=== PATIENT | female | born 1970 | race African-American/Black ===

== ENCOUNTER 2017-11-17 03:55 | Emergency (ER) | payer MEDICAID ==
[2017-11-17 04:36] VITALS: BP 103/61
[2017-11-17] MEDS ORDERED: DIPH/PERTUSS(ACELL)/TETANUS VAC/PF 0.5 ML SYR (>=10YO) IM ONE (04:44)
--- NOTE | 2017-11-17 04:46 | ER Document Report ---
HPI - HPI Patient complains to provider of: Facial injury Onset: Just prior to arrival Onset/Duration: Sudden Quality of pain: Achy Pain Level: 3 Context: Patient was drinking alcohol this evening and slipped down stairs hitting her face on pavement. Patient denies any loss of consciousness, nausea or vomiting. Behavior has been normal since the injury. Patient has abrasions to the face and nose area. Associated Symptoms: Headache, Other - Facial abrasions Exacerbated by: Denies Relieved by: Denies Similar symptoms previously: No Recently seen / treated by doctor: No - ROS ROS below otherwise negative: Yes Systems Reviewed and Negative: Yes All other systems reviewed and negative - CONSTITUTIONAL Constitutional: DENIES: Fever - NEURO Neurology: DENIES: Headache - GASTROINTESTINAL Gastrointestinal: DENIES: Nausea, Patient vomiting - DERM Skin Color: Normal Notes: Facial abrasions Past Medical History - General Information source: Patient - Social History Smoking Status: Current Every Day Smoker Frequency of alcohol use: Social Drug Abuse: None Family History: Reviewed & Not Pertinent Patient has suicidal ideation: No Patient has homicidal ideation: No - Medical History Medical History: Negative Renal/ Medical History: Denies: Hx Peritoneal Dialysis Past Surgical History: Reports: Hx Section Vertical Provider Document - CONSTITUTIONAL Agree With Documented VS: Yes Exam Limitations: No Limitations General Appearance: WD/WN, No Apparent Distress Notes: Patient removed her cervical collar and does not want it replaced - INFECTION CONTROL TRAVEL OUTSIDE OF THE [place] IN LAST 30 DAYS: No - HEENT HEENT: Normal ENT Exam, Normocephalic, PERRLA Notes: Patient with abrasion to forehead, bridge of nose and right infraorbital area. Extraocular movements intact. Patient with puncture wound to right side of forehead. - NECK Neck: Normal Inspection, Supple. negative: Lymphadenopathy-Left, Lymphadenopathy-Right Notes: No posterior cervical midline tenderness, step-off or deformity - RESPIRATORY Respiratory: Breath Sounds Normal, No Respiratory Distress O2 Sat by Pulse Oximetry: 100 - CARDIOVASCULAR Cardiovascular: Regular Rate, Regular Rhythm, No Murmur - BACK Back: Normal Inspection Notes: No spinal tenderness, step-off or deformity - MUSCULOSKELETAL/EXTREMETIES Musculoskeletal/Extremeties: MAEW, FROM - NEURO Level of Consciousness: Awake, Alert, Appropriate Motor/Sensory: No Motor Deficit - DERM Integumentary: Warm, Dry Notes: Puncture wound to right side of forehead with overlying abrasions to forehead, right infraorbital area and bridge of nose Course - Re-evaluation Re-evalutation: 11/17/17 06:11 Although patient is intoxicated, patient is awake, alert and answers questions appropriately. Patient will not be driving home and will be going home in the care of friends who is sober and is advised of worsening signs or symptoms that she should return immediately for. Patient advised that she will need to follow -up with a ear nose and throat doctor for further evaluation of her nasal fracture. Discussed wound management. 11/17/17 07:46 - Vital Signs Vital signs: Temp Pulse Resp BP Pulse Ox 98.3 F 88 16 103/61 100 11/17/17 04:02 11/17/17 04:02 11/17/17 04:02 11/17/17 04:02 11/17/17 04:02 - Diagnostic Test Radiology reviewed: Reports reviewed Discharge - Discharge Clinical Impression: Alcohol abuse Facial abrasion Qualifiers: Encounter type: initial encounter Qualified Code(s): S00.81XA - Abrasion of other part of head, initial encounter Nasal bone fracture Qualifiers: Encounter type: initial encounter Fracture type: closed Qualified Code(s): S02.2XXA - Fracture of nasal bones, initial encounter for closed fracture Condition: Stable Disposition: HOME, SELF-CARE Instructions: Abrasions of the Face ([facility]), Acute Alcohol Intoxication ([facility]), Fracture of the Nose ([facility]) Additional Instructions: Return immediately for any new or worsening symptoms Followup with your primary care provider, call tomorrow to make a followup appointment Follow-up with an ear nose and throat doctor, call Sunday for an appointment Avoid use of alcohol Keep wounds clean and cover with antibiotic ointment such as bacitracin daily Referrals: ENT [Provider Group] - Follow up as needed [facility] [Provider Group] - 11/19/17
--- NOTE | 2017-11-17 05:27 | RADIOLOGY REPORT (SQ) ---
EXAM DESCRIPTION: CT CERVICAL SPINE WITHOUT CLINICAL HISTORY: fall, facial injury COMPARISON: None available TECHNIQUE: Axial CT of the cervical spine obtained without contrast. FINDINGS: Alignment of the cervical spine is maintained without evidence of subluxation. The atlantoaxial, atlantodental, and occipitoatlantal intervals are preserved. No fracture identified. Vertebral body height preserved. Prevertebral soft tissues are unremarkable. Mild loss of intervertebral disc height and endplate spondylosis at C3/4 through C6/C7 with mild facet arthropathy. Mild osseous neural foraminal narrowing. No central canal narrowing. Visualized skull base is intact. No fracture of the visualized facial bones. Visualized mastoid air cells and paranasal sinuses are well aerated. Visualized thyroid is unremarkable. No cervical lymphadenopathy. No pneumothorax in the visualized lung apices. /Interstitial opacity in the lung apices. DLP: 417.27 mGy-cm IMPRESSION: 1. No acute fracture or subluxation of the cervical spine. 2. Moderate degenerative change of the cervical spine. This exam was performed according to our departmental dose-optimization program, which includes automated exposure control, adjustment of the mA and/or kV according to patient size and/or use of iterative reconstruction technique.
--- NOTE | 2017-11-17 05:29 | RADIOLOGY REPORT (SQ) ---
EXAM DESCRIPTION: CT HEAD WITHOUT CLINICAL HISTORY: fall, facial injury COMPARISON: None available TECHNIQUE: Axial CT of the head obtained from the skull apex to the skull base without contrast. FINDINGS: No acute intracranial hemorrhage identified. No mass, mass effect, shift of the midline, abnormal extra-axial fluid collection or CT evidence of acute ischemic change identified. The ventricular system is unremarkable. No acute abnormalities of the supratentorial white matter, basal ganglia, cerebellum, or brainstem. The visualized paranasal sinuses and the mastoids are clear. No skull fracture identified. Visualized orbits and globes are unremarkable. Contusion/laceration in the right frontal scalp subcutaneous soft tissues. DLP:1162.97 mGy-cm IMPRESSION: 1. No acute intracranial abnormality. This exam was performed according to our departmental dose-optimization program, which includes automated exposure control, adjustment of the mA and/or kV according to patient size and/or use of iterative reconstruction technique.
--- NOTE | 2017-11-17 05:34 | RADIOLOGY REPORT (SQ) ---
EXAM DESCRIPTION: CT FACIAL AREA WITHOUT CLINICAL HISTORY: fall, facial injury COMPARISON: None available TECHNIQUE: Axial CT of the facial bones obtained without contrast. FINDINGS: Visualized orbital floors and izaguirre are intact. Maxillary antral izaguirre and hard palate are intact. Nondisplaced bilateral nasal bone fractures. The pterygoid plates and zygomatic processes are intact. The mandible is intact without mandibular condylar dislocation. Globes and intraconal contents are unremarkable. Contusion in the right frontal paranasal sinuses are well aerated. Visualized mastoid air cells are well aerated. No abnormalities of visualized intracranial contents. No abnormalities of the neck soft tissues. No lymphadenopathy identified. Degenerative change of the cervical spine. Subcutaneous scalp soft tissues. DLP: 278.72 mGy-cm IMPRESSION: 1. Age-indeterminate nondisplaced bilateral nasal bone fractures. 2. No other facial bone fractures identified. Contusion in the right frontal scalp soft tissues. This exam was performed according to our departmental dose-optimization program, which includes automated exposure control, adjustment of the mA and/or kV according to patient size and/or use of iterative reconstruction technique.
== END 2017-11-17 06:34 | disposition home or self-care (01) ==
LOC: ER 03:55
DX: S02.2XXA Fracture of nasal bones, initial encounter for closed fracture (principal); S01.83XA Puncture wound without foreign body of other part of head, initial encounter; W10.9XXA Fall (on) (from) unspecified stairs and steps, initial encounter; F10.129 Alcohol abuse with intoxication, unspecified; F17.200 Nicotine dependence, unspecified, uncomplicated
CPT/HCPCS: 70450; 70486; 72125; 90471; 90715; 99284

== ENCOUNTER 2019-08-13 15:14 | Emergency (ER) | payer MEDICARE, MEDICAID ==
[2019-08-13 15:22] VITALS: BP 115/78
[2019-08-13] MEDS ORDERED: KETOROLAC TROMETHAMINE INJ/PF 30 MG/1 ML SDV IV ONE (15:45)
[2019-08-13] MEDS ORDERED: NORMAL SALINE 1000 ML 1,000 ML IV ONE (15:45)
--- NOTE | 2019-08-13 15:47 | ER Document Report ---
ED Medical Screen (RME) - General Chief Complaint: Back Pain Stated Complaint: BACK PAIN Time Seen by Provider: 08/13/19 15:44 Mode of Arrival: Ambulatory Information source: Patient Notes: Patient presents complaining of right lower back and groin pain for the past 2 to 3 weeks. Patient states pain radiates to the right lower extremity. Patient does have a history of sciatica. Patient denies any fever or urinary symptoms. Patient does have a history of HIV and is not on any antiviral medication at this time. Patient tachycardic in triage. I have greeted and performed a rapid initial assessment of this patient. A comprehensive ED assessment and evaluation of the patient, analysis of test results and completion of the medical decision making process will be conducted by additional ED providers. TRAVEL OUTSIDE OF THE [place] IN LAST 30 DAYS: No - Related Data Allergies/Adverse Reactions: No Known Allergies Allergy (Verified 08/13/19 15:39) Past Medical History - Social History Chew tobacco use (# tins/day): No Frequency of alcohol use: None Drug Abuse: None Renal/ Medical History: Denies: Hx Peritoneal Dialysis Past Surgical History: Reports: Hx Section Physical Exam - Vital signs Vitals: Temp Pulse Resp BP Pulse Ox 98.4 F 124 H 18 115/78 96 08/13/19 15:20 08/13/19 15:20 08/13/19 15:20 08/13/19 15:20 08/13/19 15:20 - General General appearance: Alert Notes: No spinal midline tenderness - Cardiovascular Rhythm: Tachycardia Heart sounds: S1 appreciated, S2 appreciated Course - Vital Signs Vital signs: Temp Pulse Resp BP Pulse Ox 98.4 F 124 H 18 115/78 96 08/13/19 15:20 08/13/19 15:20 08/13/19 15:20 08/13/19 15:20 08/13/19 15:20
[2019-08-13 16:54] LABS: ABSOLUTE LYMPHOCYTES (AUTO) 0.8 10^3/uL (0.5-4.7); ABSOLUTE MONOCYTES (AUTO) 0.4 10^3/uL (0.1-1.4); ABSOLUTE NEUT (AUTO) 2.6 10^3/uL (1.7-8.2); BASOPHILS % (AUTO) 0.6 % (0-2); EOSINOPHILS % (AUTO) 1.2 % (0-6); HEMATOCRIT 42.9 % (36.0-47.0); HEMOGLOBIN 14.6 g/dL (12.0-15.5); LYMPHOCYTES % (AUTO) 20.8 % (13-45); MEAN CORPUSCULAR HEMOGLOBIN 32.8 pg (27.0-33.4); MEAN CORPUSCULAR HGB CONC 34.1 g/dL (32.0-36.0); MEAN CORPUSCULAR VOLUME 96 fl (80-97); MONOCYTES % (AUTO) 11.4 % (3-13); PLATELET COUNT 202 10^3/uL (150-450); RED BLOOD COUNT 4.46 10^6/uL (3.72-5.28); RED CELL DISTRIBUTION WIDTH 13.4 % (11.5-14.0); TOTAL CELLS COUNTED % (AUTO) 100 %; WHITE BLOOD COUNT 3.9 10^3/uL (4.0-10.5)
[2019-08-13 17:01] LABS: ANION GAP 11 (5-19); BLOOD UREA NITROGEN 18 mg/dL (7-20); CARBON DIOXIDE 23 mmol/L (22-30); CHLORIDE 107 mmol/L (98-107); GLUCOSE 120 mg/dL (75-110); POTASSIUM 3.8 mmol/L (3.6-5.0)
[2019-08-13 18:18] LABS: APPEARANCE,URINE CLOUDY; BILIRUBIN,URINE NEGATIVE (NEGATIVE); COLOR,URINE DARK YELLOW; GLUCOSE, URINE NEGATIVE (NEGATIVE); KETONES,URINE TRACE mg/dL (NEGATIVE); LEUKOCYTE ESTERASE,URINE MODERATE (NEGATIVE); NITRITE,URINE NEGATIVE (NEGATIVE); PROTEIN,URINE 100 mg/dL (NEGATIVE); URINE SPECIFIC GRAVITY 1.027
[2019-08-13] MEDS ORDERED: OXYCODONE-ACETAMINOPHEN 5-325 MG TABLET PO ONE (18:24)
--- NOTE | 2019-08-13 18:30 | ER Document Report ---
ED General - General Chief Complaint: Back Pain Stated Complaint: BACK PAIN Time Seen by Provider: 08/13/19 15:44 Mode of Arrival: Ambulatory TRAVEL OUTSIDE OF THE [place] IN LAST 30 DAYS: No - HPI Notes: Patient is a 48-year-old female presents emergency department for evaluation of pain in her right hip and buttock area that radiates down the right lateral leg. She states it is her sciatica. She has a history of sciatica. She states it feels similar. She denies any bowel or bladder incontinence, no saddle anesthesia, no focal numbness or weakness. No fevers or chills. No nausea or vomiting. She states that occasionally she feels as if her food gets stuck in her lower esophagus. This is only been going on over the last week or so. She denies any regurgitation of her food. No melena or hematochezia. She states she was started on Prevacid a few years ago when she had an EGD performed in [place], but stopped taking that. Patient also notes that she is not taking any antiretrovirals at this time. She states she had some difficulties when she moved out of the area after [place]. She is reestablish care in the area, is already establishing care with somebody to manage her HIV. - Related Data Allergies/Adverse Reactions: No Known Allergies Allergy (Verified 08/13/19 15:39) Past Medical History - General Information source: Patient - Social History Smoking Status: Current Every Day Smoker Chew tobacco use (# tins/day): No Frequency of alcohol use: None Drug Abuse: None Family History: Reviewed & Not Pertinent Patient has suicidal ideation: No Patient has homicidal ideation: No Renal/ Medical History: Denies: Hx Peritoneal Dialysis GI Medical History: Reports: Hx Gastroesophageal Reflux Disease Musculoskeletal Medical History: Reports Other - Sciatica Infectious Medical History: Reports: Hx HIV Past Surgical History: Reports: Hx Section Review of Systems - Review of Systems Constitutional: No symptoms reported EENT: No symptoms reported Cardiovascular: No symptoms reported Respiratory: No symptoms reported Gastrointestinal: See HPI Genitourinary: No symptoms reported Musculoskeletal: See HPI Skin: No symptoms reported Neurological/Psychological: No symptoms reported Physical Exam - Vital signs Vitals: Temp Pulse Resp BP Pulse Ox 98.4 F 124 H 18 115/78 96 08/13/19 15:20 08/13/19 15:20 08/13/19 15:20 08/13/19 15:20 08/13/19 15:20 - Notes Notes: Vital signs reviewed, please refer to chart. Head is normocephalic, atraumatic. Pupils equal round, reactive to light. Neck is supple without meningismus. Heart is regular rate and rhythm. Lungs are clear to auscultation bilaterally. Abdomen is soft, nontender, normoactive bowel sounds throughout. Extremities without cyanosis, clubbing. Posterior calves are nontender. Peripheral pulses are equal. Skin is warm and dry. Emanation of the spine is no midline tenderness or step-off. She has paraspinal musculature tenderness noted on the right from L3-L5, into the SI joint, and overlying the right piriformis. Positive straight leg raise on the right, negative on the left. Patellar and Achilles reflexes are 2+ bilaterally, sensation is intact. Course - Re-evaluation Re-evalutation: 08/13/19 18:27 Patient presents to the emergency department for evaluation. She laboratory vesication's and urinalysis is ordered through triage. Urinalysis was contaminated. Laboratory investigations are largely unremarkable. The importance of good medications and HIV control were stressed to the patient. I also stressed to her that she should probably restart her Prevacid as directed by GI. She voiced understanding to this. She was given Percocet and Toradol here. I will send her home with prescription for steroids and muscle relaxers. She is to follow-up with primary care, return to the ED with worsening or new concerning symptoms of any sort. - Vital Signs Vital signs: Temp Pulse Resp BP Pulse Ox 98.4 F 124 H 18 115/78 96 08/13/19 15:20 08/13/19 15:20 08/13/19 15:20 08/13/19 15:20 08/13/19 15:20 - Laboratory Result Diagrams: 08/13/19 16:30 08/13/19 16:30 Laboratory results interpreted by me: 08/13/19 08/13/19 08/13/19 16:00 16:30 16:30 WBC 3.9 L Glucose 120 H Urine Protein 100 H Urine Ketones TRACE H Urine Blood MODERATE H Urine Urobilinogen 2.0 H Ur Leukocyte Esterase MODERATE H Urine Ascorbic Acid 20 H Discharge - Discharge Clinical Impression: Sciatica Qualifiers: Laterality: right Qualified Code(s): M54.31 - Sciatica, right side GERD (gastroesophageal reflux disease) Qualifiers: Esophagitis presence: esophagitis presence not specified Qualified Code(s): K21.9 - Gastro-esophageal reflux disease without esophagitis Condition: Stable Disposition: HOME, SELF-CARE Instructions: Sciatica ([facility]) Additional Instructions: Moist heat to the painful area. Take medications as prescribed, being sure to take the prednisone as directed until gone. You should consider restarting your Prevacid, this is available [id number], and may be helpful with your acid reflux/esophageal issues. Follow-up with primary care next week. Return to the emergency department with worsening or new concerning symptoms of any sort. Forms: Smoking Cessation Education
== END 2019-08-13 18:53 | disposition home or self-care (01) ==
LOC: ER 15:14
DX: M54.31 Sciatica, right side (principal); K21.9 Gastro-esophageal reflux disease without esophagitis; Z21 Asymptomatic human immunodeficiency virus [HIV] infection status; F17.200 Nicotine dependence, unspecified, uncomplicated
CPT/HCPCS: 99283; 96361; 96374; 36415; 85025; 80048; 81001; J1885; A9270; J7030